=== PATIENT | male | born 1965 | race Caucasian/White ===

== ENCOUNTER 2018-03-27 05:59 | Inpatient (IN) | payer OTHER ==
[~2018-03-27] VITALS: Ht 167.6 cm; Wt 73.5 kg
[2018-03-27] MEDS ORDERED: METF500T2 PO (07:10)
[2018-03-27] MEDS ORDERED: MIC5 PO (07:10)
[2018-03-27] MEDS ORDERED: GEMF600T5 PO (07:10)
[2018-03-27] MEDS ORDERED: LISI2.5T12 PO (07:10)
[2018-03-27] MEDS ORDERED: NACL 0.9% 1,000 ML IV SCH (08:36)
[2018-03-27] MEDS ORDERED: ACETAMINOPHEN 325 MG TAB PO PRN (08:40)
[2018-03-27] MEDS ORDERED: LORazepam 2 MG/ML VIAL IVP PRN (08:40)
[2018-03-27] MEDS ORDERED: DEXTROSE 50% 50 ML SYR IVP PRN (09:50)
[2018-03-27] MEDS: DEXT 5% / NACL 0.9% 1,000 ML IV SCH ×2 (10:00→22:14)
[2018-03-27 10:15] VITALS: BP 101/73
--- NOTE | 2018-03-27 10:15 | NUR ---
RECEIVED PT FROM ER NURSE, SADIQ, PT IS AWAKE AND DAUGHTER IS ON THE BEDSIDE. PT HAS AN IV LINE AT THE RT AC G.20 WITH D5NS AT 75ML/HR, INTACT. VITAL SIGNS TAKEN AND PLAN OF CARE DISCUSSED. SIDE RAILS ARE UP AND CALL LIGHT WITHIN REACH. NO SIGN OF DISTRESS NOTED. WILL CONTINUE TO MONITOR.
--- NOTE | 2018-03-27 10:20 | NUR ---
PT IS AWAKE AND DR. KIRAN SAW THE PT AND SPEAK WITH THE PT. DR. KIRAN INFORMED THE PT THAT TESTS WILL BE DONE. PT VERBALIZED UNDERSTANDING.
--- NOTE | 2018-03-27 10:25 | NUR ---
PT IS AWAKE AND MRSA SWAB DONE. NO SIGN OF DISTRESS NOTED. WILL MONITOR.
[2018-03-27 11:25] LABS: BASOPHILS % (AUTO) 0.6 % (0.0-2.0); EOSINOPHILS # (AUTO) 0.1 K/uL (0-0.4); EOSINOPHILS % (AUTO) 1.5 % (0.0-4.0); HEMATOCRIT 43.9 % (36-52); HEMOGLOBIN 14.5 g/dL (12.0-18.0); LYMPHOCYTES # (AUTO) 1.4 K/uL (2.0-11.5); LYMPHOCYTES % (AUTO) 17.1 % (20.5-51.1); MEAN CORPUSCULAR HEMOGLOBIN 30 pg (27-31); MEAN CORPUSCULAR HGB CONC 33 g/dL (33-37); MEAN CORPUSCULAR VOLUME 89.6 fL (80-94); MONOCYTES # (AUTO) 0.7 K/uL (0.8-1.0); MONOCYTES % (AUTO) 8.4 % (1.7-9.3); NEUTROPHILS # (AUTO) 5.9 K/uL (1.8-7.7); NEUTROPHILS % (AUTO) 72.4 % (42.2-75.2); PLATELET COUNT (AUTO) 197 K/uL (140-450); RED CELL DISTRIBUTION WIDTH 13.6 % (11.6-13.7); WHITE BLOOD COUNT (AUTO) 8.2 K/uL (4.8-10.8)
[2018-03-27] MEDS: BLOOD GLUCOSE MONITORING 1 DEV DEV FS SCH ×3 (11:30→21:00)
[2018-03-27 11:33] LABS: ANION GAP 10.8 (8-16); CARBON DIOXIDE 25.8 mmol/L (21-32); CREATININE 0.8 mg/dL (0.7-1.3); POTASSIUM 4.6 mmol/L (3.5-5.1)
[2018-03-27 12:00] VITALS: BP 104/69
--- NOTE | 2018-03-27 12:00 | NUR ---
CALLED DR. GOMEZ AND ASKED IF THE PT WILL STILL BE PUT ON NPO. DR GOMEZ ASKED IF PT WAS CLEARED BY DR. KIRAN, IF CLEARED TODAY HE CAN STILL DO THE SURGERY TONIGHT. WILL FOLLOW UP ON DR. KIRAN.
--- NOTE | 2018-03-27 12:30 | NUR ---
PT IS AWAKE AND VITAL SIGNS TAKEN, BLOOD GLUCOSE CHECK DONE AND RESULT IS 209. INSULIN GIVEN THRU UPPER LEFT ARM. NO SIGN OF DISTRESS NOTED AND WILL CONTINUE TO MONITOR.
[2018-03-27] MEDS: INSULIN LISPRO SLIDING SCALE 100 UNITS/ML VIAL SUBQ PRN ×3 (13:48→22:08)
--- NOTE | 2018-03-27 14:00 | NUR ---
CALLED DR. KIRAN REGARDING THE PT IF WILL BE CONTINUED FOR NPO, LEFT A MSGE IN THE CP. WILL WAIT FOR RESPONSE FROM DR. KIRAN.
[2018-03-27 16:00] VITALS: BP 107/72
--- NOTE | 2018-03-27 18:20 | NUR ---
CALLED AND SPOKE TO DR. ANGELA KIRAN AND RELAYED THAT THE PT S ASKING IF PT WILL BE CONTINUE TO BE NPO. DR. ANGELA KIRAN SAID THAT HE WILL JUST SEE THE PT AC SINCE HE IS IN [place] NOW.
--- NOTE | 2018-03-27 19:20 | NUR ---
ENDORSED PT TO REPAIRER PUMP NURSE, HORACE, PT IS STABLE AT THIS TIME.
--- NOTE | 2018-03-27 19:22 | NUR ---
RECEIVED PT SLEEPING, EASILY AROUSABLE, DENIES ANY PAIN, VITAL SIGNS TAKEN, BP ON THE LOW SIDE BUT STABLE, ASYMPTOMATIC, MAINTAINED ON NPO BUT PT IS HUNGRY, WILL FOLLOW UP WITH DR GOMEZ, IVF INFUSING WELL, PLAN OF CARE DISCUSSED WITH PT AND DAUGHTER, CALL LIGHT WITHIN REACH.
[2018-03-27 20:00] VITALS: BP 97/65
--- NOTE | 2018-03-27 20:10 | NUR ---
DR Aristeo KIRAN CALLED AND UPDATED ON PT'S CONDITION, SAID TO CALL DR GOMEZ TO DO SURGERY TOMORROW BECAUSE HE IS GONNA WAIT FOR ADDITIONAL CARDIAC PANEL AND EKG RESULTS AND SINCE THE BP OF PT IS STILL ON THE LOW SIDE, DR GOMEZ PAGED, AWAITING CALL BACK.
--- NOTE | 2018-03-27 20:35 | NUR ---
DR GOMEZ CALLED AND MADE AWARE OF DR Fawad KIRAN'S RECOMMENDATION, DR GOMEZ SAID THAT'S FINE AND TO FEED THE PT WITH FULL LIQUID TONIGHT AND MADE NPO AFTER MIDNIGHT, PT MADE AWARE, BLOOD SUGAR CHECKED WITH 163 RESULT, PUDDING, JELLO AND CHICKEN BROTH PROVIDED, TOLERATED WELL, ALL NEEDS ATTENDED.
[2018-03-28] VITALS: BP 93/51
--- NOTE | 2018-03-28 | NUR ---
PT SLEEPING, EASILY AROUSABLE, VITAL SIGNS TAKEN, BP ON THE LOW SIDE BUT STABLE, ASYMPTOMATIC, DENIES ANY PAIN, NPO AFTER MIDNIGHT STATUS, IVF INFUSING WELL, CONTINUE TO MONITOR CLOSELY.
[2018-03-28 01:29] LABS: CREATINE KINASE MB 0.5 ng/mL (0-3.6)
[2018-03-28 04:00] VITALS: BP 100/64
--- NOTE | 2018-03-28 04:00 | NUR ---
PT SLEEPING, EASILY AROUSABLE, VITAL SIGNS STABLE, BP-100/64, HR-75, MAINTAINED ON NPO, IVF INFUSING WELL, MONITORED CLOSELY.
[2018-03-28] MEDS: INSULIN LISPRO SLIDING SCALE 100 UNITS/ML VIAL SUBQ PRN ×3 (06:03→16:48)
--- NOTE | 2018-03-28 06:05 | NUR ---
BLOOD SUGAR CHECKED WITH 188 RESULT, COVERAGE GIVEN, IVF OF D5NS AT 75ML/H INFUSING WELL, MAINTAINED ON NPO, DENIES ANY PAIN, MONITORED CLOSELY.
[2018-03-28] MEDS: BLOOD GLUCOSE MONITORING 1 DEV DEV FS SCH ×3 (06:34→16:43)
--- NOTE | 2018-03-28 07:15 | NUR ---
PT SLEEPING, NO SIGNS OF DISTRESS, REPORT GIVEN TO RN JUAN FOR CONTINUITY OF CARE.
--- NOTE | 2018-03-28 07:16 | NUR ---
RECEIVED REPORT FROM STRAP CUTTING MACHINE OPERATOR NURSE AT BEDSIDE FOR CONTINUITY OF CARE. PATIENT IS ASLEEP BUT AROUSABLE, DAUGHTER AT BEDSIDE. PATIENT AOX4, KHMER SPEAKING WITH SOME VIETNAMESE. RESPIRATIONS EVEN AND UNLABORED. PATIENT DENIES PAIN. UPDATED BOARD, UPDATED PATIENT AND DAUGHTER WITH TODAY'S PLAN OF CARE. PATIENT AND DAUGHTER VERBALIZED UNDERSTANDING. IV TO R AC #20 INFUSING D5 NS @ 75 ML/HR. SKIN INTACT. SAFETY PRECAUTION IN PLACE, CALL LIGHT WITHIN REACH, WILL CONTINUE TO MONITOR PATIENT.
[2018-03-28 07:56] VITALS: BP 94/65
[2018-03-28 08:33] LABS: BASOPHILS # (AUTO) 0.1 K/uL (0.00-0.22); BASOPHILS % (AUTO) 0.9 % (0.0-2.0); EOSINOPHILS # (AUTO) 0.2 K/uL (0-0.4); EOSINOPHILS % (AUTO) 2.6 % (0.0-4.0); HEMATOCRIT 44.8 % (36-52); HEMOGLOBIN 14.8 g/dL (12.0-18.0); LYMPHOCYTES # (AUTO) 1.8 K/uL (2.0-11.5); LYMPHOCYTES % (AUTO) 26.2 % (20.5-51.1); MEAN CORPUSCULAR HEMOGLOBIN 30 pg (27-31); MEAN CORPUSCULAR HGB CONC 33 g/dL (33-37); MEAN CORPUSCULAR VOLUME 89.4 fL (80-94); MONOCYTES # (AUTO) 0.7 K/uL (0.8-1.0); MONOCYTES % (AUTO) 10.2 % (1.7-9.3); NEUTROPHILS % (AUTO) 60.1 % (42.2-75.2); PLATELET COUNT (AUTO) 202 K/uL (140-450); RED BLOOD CELL COUNT(AUTO) 5.01 MIL/uL (4.20-6.10); RED CELL DISTRIBUTION WIDTH 13.1 % (11.6-13.7); WHITE BLOOD COUNT (AUTO) 6.7 K/uL (4.8-10.8)
--- NOTE | 2018-03-28 08:35 | NUR ---
PATIENT HAS BEEN SCREENED AND CATEGORIZED MODERATE NUTRITION RISK. PATIENT WILL BE SEEN WITHIN 3-5 DAYS OF ADMISSION. 03/30/18 04/01/[address]
[2018-03-28 08:43] LABS: ALBUMIN 2.8 g/dL (3.4-5.0); ANION GAP 8.7 (8-16); CARBON DIOXIDE 26.6 mmol/L (21-32); CREATININE 0.8 mg/dL (0.7-1.3); POTASSIUM 4.3 mmol/L (3.5-5.1); TOTAL BILIRUBIN 0.3 mg/dL (0.0-1.0)
[2018-03-28 08:54] LABS: CREATINE KINASE MB 0.8 ng/mL (0-3.6)
[2018-03-28] MEDS ORDERED: ASPIRIN 81 MG TAB.CHEW PO SCH (09:00)
--- NOTE | 2018-03-28 09:05 | NUR ---
DR GOMEZ IN TO SEE THE PATIENT. WILL WAIT FOR HIS ORDERS.
--- NOTE | 2018-03-28 09:10 | NUR ---
FOLDER STITCHER OPERATOR, JUANA, CALLED Fawad WATSON AND UPDATED HIM WITH PATIENT'S CURRENT STATUS, INCLUDING UPDATED LABS, EKG, AND ECHOCARDIOGRAM THIS AM. PATIENT NOW CLEARED FOR SURGERY.
--- NOTE | 2018-03-28 09:11 | NUR ---
DR LEO IN TO SEE THE PATIENT. DAUGHTER AT BEDSIDE. PATIENT INFORMED THAT HE IS CLEARED FOR SURGERY, HOWEVER, DR. GOMEZ MIGHT NOT BE ABLE TO FIT HIM ON THE SCHEDULE TODAY. DR. LEO WILL KNOW BY 1300. IF PATIENT IS NOT HAVING SURGERY, HE MAY BE DISCHARGE WITH PROCEDURE BEING DONE IN OUTPATIENT SETTING. PATIENT AND DAUGHTER VERBALIZED UNDERSTANDING.
[2018-03-28] MEDS: DEXT 5% / NACL 0.9% 1,000 ML IV SCH (10:21)
--- NOTE | 2018-03-28 10:25 | NUR ---
OCCUPATIONAL THERAPIST PER DIEM INFORMED RN THAT PATIENT'S HR IS 46. RN WENT TO CHECK PATIENT. PATIENT SLEEPING BUT AROUSABLE. PATIENT AOX4. UPDATED PATIENT WITH CURRENT PLAN OF CARE AND CURRENT NPO STATUS. PATIENT VERBALIZED UNDERSTANDING. SAFETY PRECAUTION IN PLACE, CALL LIGHT WITHIN REACH. WILL CONTINUE TO MONITOR PATIENT.
--- NOTE | 2018-03-28 11:35 | NUR ---
BLOOD SUGAR 196, INSULIN COVERAGE GIVEN. VITAL SIGNS WNL. PATIENT RESTING IN BED. NO SIGNS OF DISTRESS OR SOB NOTED ON ROOM AIR. RESPIRATIONS EVEN AND UNLABORED. PATIENT DENIES PAIN AT THE MOMENT. SAFETY PRECAUTION IN PLACE, CALL LIGHT WITHIN REACH, WILL CONTINUE TO MONITOR PATIENT.
[2018-03-28 12:00] VITALS: BP 102/68
--- NOTE | 2018-03-28 12:35 | NUR ---
PAGED DR. GOMEZ, WAITING FOR HIS CALL BACK ABOUT WHETHER OR NOT PATIENT WILL HAVE SURGERY TODAY.
--- NOTE | 2018-03-28 13:09 | NUR ---
PAGED DR. GOMEZ AGAIN, WAITING FOR HIS CALL BACK ABOUT WHETHER OR NOT PATIENT WILL HAVE SURGERY TODAY.
--- NOTE | 2018-03-28 13:32 | NUR ---
Clinical review faxed to Nickie at [facility] at [phone]
--- NOTE | 2018-03-28 13:42 | NUR ---
PAGED DR. GOMEZ AGAIN, WAITING FOR HIS CALL BACK ABOUT WHETHER OR NOT PATIENT WILL HAVE SURGERY TODAY.
--- NOTE | 2018-03-28 14:30 | NUR ---
DR GOMEZ CALLED BACK. SURGERY WILL BE TODAY AT 1700 OR 1800. PATIENT AND FAMILY MEMBERS AT BEDSIDE INFORMED. PATIENT REQUESTED FOR BROTH. RN RESTATED HIS NPO STATUS IN PREPARATION FOR SURGERY. PATIENT VERBALIZED UNDERSTANDING.
[2018-03-28 16:00] VITALS: BP 108/70
--- NOTE | 2018-03-28 17:15 | NUR ---
CALLED AND HE SAID HIS UNABLE TO DO SURGERY TONIGHT, HE WILL DO IT TMW AFTERNOON.
--- NOTE | 2018-03-28 17:17 | NUR ---
CALLED DR LEO TO INFORM HER THAT SURGERY TODAY IS CANCELLED. DR LEO ORDERS THAT PATIENT BE FED AND DC HOME TO FOLLOW UP WITH DR. GOMEZ IN OUTPATIENT. RN VERBALIZED UNDERSTANDING. PATIENT AND FAMILY MEMBERS INFORMED. THEY VERBALIZED UNDERSTANDING.
--- NOTE | 2018-03-28 17:45 | NUR ---
DISCHARGE INSTRUCTIONS AND EDUCATION GIVEN TO PATIENT AND DAUGHTER, KAILA. PATIENT AND KAILA VERBALIZED UNDERSTANDING. IV REMOVED, IV CATHETER INTACT, MINIMAL BLEEDING NOTED. ID BANDS CUT. TELE MONITOR REMOVED. PATIENT HAS CHANGED INTO HIS CLOTHING AND IS READY FOR DISCHARGE. PATIENT IS CURRENTLY EATING CLEAR LIQUID DINNER. RN INFORMED HIM THAT WHEN HE FINISHES, HE CAN BE DISCHARGED. PATIENT AND DAUGHTER VERBALIZED UNDERSTANDING.
--- NOTE | 2018-03-28 18:10 | NUR ---
PATIENT AMBULATED OFF FLOOR ON STEADY GAIT ACCOMPANIED BY DAUGHTER, , AND RN. PATIENT TOOK ALL HIS BELONGINGS WITH HIM, PATIENT IN STABLE CONDITION.
== END 2018-03-28 18:10 | disposition home or self-care (01) | DRG 207 ==
LOC: MDS 05:59 → MMU 06:00 → MDS 08:30 → MMU 08:36
PROVIDERS: ADMIT Hospitalist; ATTEND Hospitalist
DX: I95.89 Other hypotension (principal); I24.9 Acute ischemic heart disease, unspecified; E44.1 Mild protein-calorie malnutrition; I10 Essential (primary) hypertension; T46.4X5A Adverse effect of angiotensin-converting-enzyme inhibitors, initial encounter; E11.9 Type 2 diabetes mellitus without complications; E78.5 Hyperlipidemia, unspecified; F17.210 Nicotine dependence, cigarettes, uncomplicated; K42.9 Umbilical hernia without obstruction or gangrene; F41.9 Anxiety disorder, unspecified; E78.00 Pure hypercholesterolemia, unspecified; I25.10 Atherosclerotic heart disease of native coronary artery without angina pectoris; I25.2 Old myocardial infarction; Z53.29 Procedure and treatment not carried out because of patient's decision for other reasons; Y92.89 Other specified places as the place of occurrence of the external cause
CPT/HCPCS: 36415; 71045; 80048; 80053; 82550; 82553; 82948; 83036; 84484; 85025; 87081; 93005; J0690; J1815; J7030; J7042; J7060; Q0092

== ENCOUNTER 2018-04-10 08:36 | Day surgery (SDC) | payer OTHER ==
[~2018-04-10] VITALS: Ht 175.3 cm; Wt 73.5 kg
[2018-04-10] VITALS (7 sets, daily range): BP systolic 100–110; BP diastolic 56–67
[~2018-04-10 08:36] MED LIST: GEMF600T5 PO; METF500T2 PO; MIC5 PO
[2018-04-10] MEDS ORDERED: CEFAZOLIN SODIUM 1 GM/D5W PM 50 ML IV ONE (09:05)
[2018-04-10 10:05] LABS: BASOPHILS % (AUTO) 0.5 % (0.0-2.0); EOSINOPHILS # (AUTO) 0.1 K/uL (0-0.4); EOSINOPHILS % (AUTO) 1.1 % (0.0-4.0); HEMATOCRIT 43.9 % (36-52); HEMOGLOBIN 14.9 g/dL (12.0-18.0); LYMPHOCYTES # (AUTO) 1.3 K/uL (2.0-11.5); LYMPHOCYTES % (AUTO) 15.9 % (20.5-51.1); MEAN CORPUSCULAR HEMOGLOBIN 30 pg (27-31); MEAN CORPUSCULAR HGB CONC 34 g/dL (33-37); MEAN CORPUSCULAR VOLUME 87.3 fL (80-94); MONOCYTES # (AUTO) 0.8 K/uL (0.8-1.0); MONOCYTES % (AUTO) 9.6 % (1.7-9.3); NEUTROPHILS % (AUTO) 72.9 % (42.2-75.2); PLATELET COUNT (AUTO) 203 K/uL (140-450); RED BLOOD CELL COUNT(AUTO) 5.03 MIL/uL (4.20-6.10); RED CELL DISTRIBUTION WIDTH 13.2 % (11.6-13.7); WHITE BLOOD COUNT (AUTO) 8.2 K/uL (4.8-10.8)
[2018-04-10 10:43] LABS: ALBUMIN 3.4 g/dL (3.4-5.0); ANION GAP 11.4 (8-16); CARBON DIOXIDE 26.6 mmol/L (21-32); CREATININE 0.9 mg/dL (0.7-1.3); TOTAL BILIRUBIN 0.3 mg/dL (0.0-1.0)
[2018-04-10] MEDS ORDERED: GLU500 PO (14:21)
[2018-04-10] MEDS ORDERED: BUPIVACAINE MPF 0.25% 10 ML VIAL INJ ONE (14:38)
[2018-04-10] MEDS ORDERED: ONDANSETRON 4 MG/2 ML VIAL ONE (14:40)
[2018-04-10] MEDS ORDERED: NEOSTIGMINE 1:1000 10 MG/10 ML VIAL ONE (14:40)
[2018-04-10] MEDS ORDERED: PROPOFOL 200 MG/20 ML VIAL IV ONE (14:40)
[2018-04-10] MEDS ORDERED: SUCCINYLCHOLINE CHLORIDE 200 MG/10 ML VIAL IVP ONE (14:40)
[2018-04-10] MEDS ORDERED: SEVOFLURANE 250 ML BTL INH ONE (14:40)
[2018-04-10] MEDS ORDERED: DEXAMETHASONE 4 MG/ML VIAL ONE (14:40)
[2018-04-10] MEDS ORDERED: GLYCOPYRROLATE 0.2 MG/ML VIAL ONE (14:40)
[2018-04-10] MEDS ORDERED: ROCURONIUM 50 MG/5 ML VIAL IV ONE (14:40)
[2018-04-10] MEDS ORDERED: MIDAZOLAM 2 MG/2 ML VIAL ONE (14:48)
[2018-04-10] MEDS ORDERED: MEPERIDINE 50 MG/ML SYR ONE (14:48)
[2018-04-10] MEDS ORDERED: fentaNYL 0.05 MG/ML VIAL ONE (14:48)
[2018-04-10] MEDS ORDERED: BLOOD GLUCOSE MONITORING 1 DEV DEV FS SCH (15:25)
[2018-04-10] MEDS ORDERED: ONDANSETRON 4 MG/2 ML VIAL IVP PRN (15:25)
[2018-04-10] MEDS ORDERED: HYDROmorphone 1 MG/ML AMP IVP PRN ×2 (15:25→15:45)
[2018-04-10] MEDS ORDERED: NACL 0.9% 1,000 ML IV SCH (15:44)
[2018-04-10] MEDS ORDERED: ONDANSETRON 4 MG/2 ML VIAL IV PRN (15:45)
[2018-04-10] MEDS ORDERED: MORPHINE SULFATE 2 MG/ML SYR IVP PRN (15:45)
[2018-04-10] MEDS ORDERED: HYDROcodone/APAP 5/325 MG 1 TAB TAB PO PRN (15:45)
[2018-04-10] MEDS ORDERED: MORPHINE SULFATE 4 MG/ML SYR IV PRN (15:45)
--- NOTE | 2018-04-10 16:25 | NUR ---
RECEIVED FROM OR VIA [facility] ACCOMPANIED BY PT. -TABITHA AND PT. DAUGHTER -KAILA. AWAKE, ALERT, AND ORIENTED X4. SPEECH CLEAR. C/O ABD PAIN 11/25. NO SOB, NOTED. NO ACUTE DISTRESS NOTICED. ABD DRESSING, DRY, AND INTACT NOTED. KEEP PT. COMFORTABLE ON BED. EXPLAINED TO PT. AND FAMILY MEMBERS ABOUT POST-OP TEACHING, PAIN MANAGEMENT TEACHING, DIET, AMBULATION ENCOURAGEMENT IF TOLERABLE, USE OF CALL LIGHT/BED/TV/BATHROOM. PT. AND FAMILY MEMBERS VERBALIZED UNDERSTANDING.
--- NOTE | 2018-04-10 19:24 | NUR ---
BEDSIDE REPORT GIVEN TO [facility]. IVF INFUSING WELL. IN STABLE CONDITION. ALSO ENDORSED ABOUT PT. D/C ORDER.
--- NOTE | 2018-04-10 21:12 | NUR ---
PATIENT VOIDED X1, 450ML URINE OUTPUT. PATIENT DENIES PAIN OR DISCOMFORT, VITAL SIGNS TEMP 98.1, BP 106/63, HR 89 [id number] ON ROOM AIR. AT THE BEDSIDE, ALERT AND ORIENTED, STATED," I WILL DRIVE." Addendum: 04/10/18 at 2138 by Casa Gomez RN DRESSING DRY AND INTACT
--- NOTE | 2018-04-10 21:28 | NUR ---
DISCHARGE INSTRUCTIONS, AND PERSONAL BELONGING LIST ALL PROVIDED. ALL THE QUESTIONS ANSWERED. PATIENT IS DISCHARGED WITH THE , SHE IS ALERT ORIENTED X4, AND SHE IS THE RESPONSIBLE ADULT WHO WILL DRIVE THEM HOME.
--- NOTE | 2018-04-10 21:40 | NUR ---
EDUCATED PATIENT AND REGARDING POST-OP TEACHING, PAIN MANAGEMENT TEACHING, DIET, AND F/U WITH DR. GOMEZ, AMBULATION ENCOURAGEMENT IF TOLERABLE. PATIENT VERBALIZED UNDERSTANDING.
--- NOTE | 2018-04-10 22:08 | NUR ---
IV TAKEN OUT, TIP INTACT, ID BAND TAKEN OUT. PATIENT IS OFF THE UNIT VIA WHEEL CHAIR IN STABLE CONDITION. IS WITH THE PATIENT.
== END 2018-04-10 22:10 | disposition home or self-care (01) ==
LOC: MOR 08:36 → MMU 08:37 → MOR 22:10
PROVIDERS: ATTEND Surgery
DX: K42.9 Umbilical hernia without obstruction or gangrene (principal); E11.9 Type 2 diabetes mellitus without complications; F41.9 Anxiety disorder, unspecified; I25.10 Atherosclerotic heart disease of native coronary artery without angina pectoris; I10 Essential (primary) hypertension; E78.5 Hyperlipidemia, unspecified; I25.2 Old myocardial infarction; E78.00 Pure hypercholesterolemia, unspecified; F17.210 Nicotine dependence, cigarettes, uncomplicated; Z79.899 Other long term (current) drug therapy; Z98.890 Other specified postprocedural states
CPT/HCPCS: 36415; 49585; 80053; 82948; 85025; J0330; J0690; J1100; J2250; J2405; J2704; J2710; J3010; J3490; J7030; C1781; J2175